=== PATIENT | female | born 1950 | race Caucasian/White ===

== ENCOUNTER 2019-01-22 11:10 | Emergency (ER) | payer OTHER ==
[~2019-01-22] VITALS: Ht 157.5 cm; Wt 66.7 kg
[2019-01-22 11:38] VITALS: BP 138/60
--- NOTE | 2019-01-22 11:51 | NUR ---
Patient ambulated to bed 1. RN evaluating patient at bedside.
--- NOTE | 2019-01-22 12:00 | NUR ---
68/F bib daughter for evaluation erythema around COBY insertion site noted this am. Pt had surgery, cholecystectomy, at [facility] by Dr. Loera 01/13/19. Pt has serosangenous drainage inside COBY. approximately 10cc. No drainage noted from insertion site. Pt c/o pain to upper abdomen, describes it has "gas" and bloating. LBM this am. Abdomen soft, active bowel sounds. Pt is AOX4, answering all questions approriately. Clear speech, portuguese speaking.
--- NOTE | 2019-01-22 12:23 | NUR ---
Dr. Bernstein is evaluating the patient at bedside.
[2019-01-22 12:52] VITALS: BP 138/60
--- NOTE | 2019-01-22 12:52 | NUR ---
Patient discharged with v/s stable. Written and verbal after care instructions given and explained. Pt and daughter advised Dr. Bernstein spoke with Dr. Loera. Patient verbalized understanding. Ambulatory with steady gait. All questions addressed prior to discharge. Advised to follow up with Dr. Loera tomorrow in office. Daughter and patient verbalized understanding.
== END 2019-01-22 12:52 | disposition home or self-care (01) ==
LOC: MED 11:10
DX: Z48.01 Encounter for change or removal of surgical wound dressing (principal); I10 Essential (primary) hypertension; Z98.890 Other specified postprocedural states
CPT/HCPCS: 99281